=== PATIENT | male | born 1935 | race Caucasian/White ===

== ENCOUNTER 2023-01-01 22:09 | Inpatient (IN) | payer MEDICARE, OTHER ==
[~2023-01-01] VITALS: Ht 152.4 cm; Wt 61.2 kg
[2023-01-01 23:02] LABS: BASOPHILS % (AUTO) 0.8 % (0.0-2.0); DIFFERENTIAL COMMENT 1; EOSINOPHILS # (AUTO) 0.4 K/uL (0.0-0.7); EOSINOPHILS % (AUTO) 7.6 % (0.0-7.0); HEMATOCRIT 37.3 % (36.7-47.1); HEMOGLOBIN 12.7 g/dL (12.5-16.3); LYMPHOCYTES # (AUTO) 1.1 K/uL (0.8-4.8); LYMPHOCYTES % (AUTO) 19.1 % (20.5-51.5); MEAN CORPUSCULAR HEMOGLOBIN 29.2 uug (23.8-33.4); MEAN CORPUSCULAR HGB CONC 34 g/dL (32.5-36.3); MEAN CORPUSCULAR VOLUME 85.5 fL (73.0-96.2); MONOCYTES # (AUTO) 0.2 K/uL (0.1-1.30); MONOCYTES % (AUTO) 4.3 % (0.0-11.0); NEUTROPHILS # (AUTO) 3.9 K/uL (1.8-8.9); NEUTROPHILS % (AUTO) 68.2 % (38.5-71.5); PLATELET COUNT (AUTO) 168 K/uL (152-348); RED BLOOD CELL COUNT(AUTO) 4.36 MIL/uL (4.06-5.63); RED CELL DISTRIBUTION WIDTH 13.6 % (12.1-16.2); WHITE BLOOD COUNT (AUTO) 5.8 K/uL (3.6-10.2)
[2023-01-01] MEDS ORDERED: LOSA25TA27 PO (23:03)
[2023-01-01] MEDS ORDERED: CALC500T52 PO (23:03)
[2023-01-01] MEDS ORDERED: ACET325T53 PO (23:03)
[2023-01-01] MEDS ORDERED: METO-356 PO (23:03)
[2023-01-01] MEDS ORDERED: BUSP5TAB3 PO (23:03)
[2023-01-01] MEDS ORDERED: ASPI81TA31 PO (23:03)
[2023-01-01] MEDS ORDERED: MAGN400O6 PO (23:03)
[2023-01-01] MEDS ORDERED: DUTA0.5C PO (23:03)
[2023-01-01] MEDS ORDERED: TRAZ-182 PO (23:03)
[2023-01-01] MEDS ORDERED: GABA-532 PO ×2 (23:03)
[2023-01-01] MEDS ORDERED: OMEP20TA5 PO (23:03)
[2023-01-01] MEDS ORDERED: MULT-213 PO (23:03)
[2023-01-01] MEDS ORDERED: MELO-105 PO (23:03)
[2023-01-01] MEDS ORDERED: CHOL10005 PO (23:03)
[2023-01-01] MEDS ORDERED: DONE5TAB7 PO (23:03)
[2023-01-01] MEDS ORDERED: TAMS-3 PO (23:03)
[2023-01-01] MEDS ORDERED: DOCU100C36 PO (23:03)
[2023-01-01 23:09] LABS: CALCIUM 9.2 mg/dL (8.5-10.1); CREATININE 1.2 mg/dL (0.6-1.3); POTASSIUM 3.8 mmol/L (3.5-5.1)
[2023-01-01 23:26] LABS: *BILIRUBIN,URIN NEGATIVE (NEGATIVE); *BLOOD, URINE NEGATIVE (NEGATIVE); *CLARITY,URINE CLEAR (CLEAR); *COLOR,URINE YELLOW (YELLOW); *KETONES,URINE TRACE (NEGATIVE); *PROTEIN,URINE NEGATIVE (NEGATIVE); *UROBILINOGEN,URINE 0.2 E.U./dl (NORMAL); LEUKOCYTE ESTERASE ,URINE NEGATIVE (NEGATIVE); NITRITE, URINE NEGATIVE (NEGATIVE); PH,URINE 5.5 (5.0-8.0); UGLUCOSE NEGATIVE (NEGATIVE)
[2023-01-02 00:28] LABS: BACTERIA,URINE FEW /HPF (NONE SEEN); RBC,URINE 0-3 /HPF (0-3); SQUAMOUS EPITHELIAL CELL,UR MODERATE /HPF (NONE SEEN); WBC,URINE NONE SEEN /HPF (0-3)
[2023-01-02] MEDS ORDERED: BLOOD SUGAR DIAGNOSTIC 1 EACH STRIP VI ONE (01:15)
[2023-01-02] MEDS ORDERED: MAG HYDROX/AL HYDROX/SIMETH 30 ML LIQUID UDC PO PRN (01:15)
[2023-01-02] MEDS ORDERED: ACETAMINOPHEN 325 MG TABLET PO PRN (01:15)
[2023-01-02] MEDS ORDERED: MAGNESIUM HYDROXIDE 30 ML LIQUID UDC PO PRN (01:15)
[2023-01-02] MEDS: TEMAZEPAM 7.5 MG CAPSULE PO PRN (02:10)
[2023-01-02 07:30] VITALS: BP 132/45; TEMP 97.7; O2SAT 100
[2023-01-02] MEDS: LORAZEPAM 0.5 MG TABLET PO PRN ×3 (08:47→19:53)
[2023-01-02 13:19] VITALS: BP 132/45; TEMP 97.7; O2SAT 100
[2023-01-02] MEDS ORDERED: OLANZAPINE 5 MG TABLET PO PRN (13:30)
[2023-01-02 14:01] LABS: ALANINE AMINOTRANSFERASE 24 U/L (16-63); ASPARTATE AMINOTRANSFERASE 28 U/L (15-37)
[2023-01-02] MEDS: GABAPENTIN 300 MG CAPSULE PO SCH (16:32)
[2023-01-02] MEDS ORDERED: OLANZAPINE 10 MG VIAL IM ONE (18:15)
[2023-01-02 20:00] VITALS: BP 140/72; TEMP 96; O2SAT 99
[2023-01-02] MEDS: OLANZAPINE 2.5 MG TABLET PO SCH (20:26)
[2023-01-03 08:11] VITALS: BP 180/69; TEMP 98; O2SAT 96
[2023-01-03] MEDS: LORAZEPAM 0.5 MG TABLET PO PRN ×2 (08:32→14:56)
[2023-01-03] MEDS: GABAPENTIN 300 MG CAPSULE PO SCH ×2 (08:32→16:12)
[2023-01-03 16:04] VITALS: BP 116/48; TEMP 98; O2SAT 96
[2023-01-03 20:00] VITALS: BP 90/43; TEMP 98.2; O2SAT 99
[2023-01-03] MEDS: OLANZAPINE 2.5 MG TABLET PO SCH (22:36)
[2023-01-04] MEDS: GABAPENTIN 300 MG CAPSULE PO SCH ×2 (08:34→16:56)
[2023-01-04] MEDS: OLANZAPINE 2.5 MG TABLET PO SCH ×2 (12:05→16:56)
[2023-01-04 16:29] VITALS: BP 121/69; TEMP 98; O2SAT 96
[2023-01-04] MEDS: LORAZEPAM 0.5 MG TABLET PO PRN (18:14)
[2023-01-04 19:49] VITALS: BP 132/70; TEMP 98.1; O2SAT 99
[2023-01-04] MEDS: TEMAZEPAM 7.5 MG CAPSULE PO PRN (21:34)
[2023-01-05 08:08] VITALS: BP 92/57; TEMP 98; O2SAT 97
[2023-01-05] MEDS ORDERED: METOPROLOL SUCCINATE XL 25 MG TAB.SR.24H PO SCH (09:00)
[2023-01-05] MEDS: LOSARTAN POTASSIUM 25 MG TABLET PO SCH (09:00)
[2023-01-05] MEDS: GABAPENTIN 300 MG CAPSULE PO SCH ×2 (09:09→17:48)
[2023-01-05] MEDS: DOCUSATE SODIUM 100 MG CAPSULE PO SCH (09:10)
[2023-01-05] MEDS: OLANZAPINE 2.5 MG TABLET PO SCH ×3 (09:10→17:48)
[2023-01-05] MEDS: CALCIUM CARBONATE 500 MG TABLET PO SCH (09:14)
[2023-01-05] MEDS: DUTASTERIDE 0.5 MG CAPSULE PO SCH (09:14)
[2023-01-05] MEDS: LORAZEPAM 0.5 MG TABLET PO PRN ×2 (11:37→20:21)
[2023-01-05] MEDS: ASPIRIN 81 MG TAB.CHEW PO SCH (11:39)
[2023-01-05 16:11] VITALS: BP 120/67; TEMP 98.1; O2SAT 98
[2023-01-05 19:51] VITALS: BP 118/74; TEMP 98.2; O2SAT 96
[2023-01-05] MEDS: TAMSULOSIN HCL 0.4 MG CAP.SR.24H PO SCH (20:21)
[2023-01-05] MEDS: TEMAZEPAM 7.5 MG CAPSULE PO PRN (21:21)
[2023-01-06 07:30] VITALS: BP 131/77; TEMP 97.6; O2SAT 97
[2023-01-06] MEDS: GABAPENTIN 300 MG CAPSULE PO SCH ×2 (08:35→17:05)
[2023-01-06] MEDS: CALCIUM CARBONATE 500 MG TABLET PO SCH (08:36)
[2023-01-06] MEDS: DOCUSATE SODIUM 100 MG CAPSULE PO SCH (08:36)
[2023-01-06] MEDS: ASPIRIN 81 MG TAB.CHEW PO SCH (08:36)
[2023-01-06] MEDS: LOSARTAN POTASSIUM 25 MG TABLET PO SCH (08:36)
[2023-01-06] MEDS: OLANZAPINE 2.5 MG TABLET PO SCH ×3 (08:36→17:06)
[2023-01-06] MEDS: DUTASTERIDE 0.5 MG CAPSULE PO SCH (08:36)
[2023-01-06 13:00] VITALS: BP 96/50; TEMP 97.8; O2SAT 98
[2023-01-06] MEDS: LORAZEPAM 0.5 MG TABLET PO PRN ×2 (15:22→23:42)
[2023-01-06] MEDS: GLUCERNA SHAKE 237 ML CAN PO SCH (17:06)
[2023-01-06 19:45] VITALS: BP 111/64; TEMP 98; O2SAT 96
[2023-01-06] MEDS: TAMSULOSIN HCL 0.4 MG CAP.SR.24H PO SCH (20:35)
[2023-01-07] MEDS: TEMAZEPAM 7.5 MG CAPSULE PO PRN ×2 (00:50→21:15)
[2023-01-07 08:00] VITALS: BP 109/50; TEMP 97.5; O2SAT 97
[2023-01-07] MEDS: GLUCERNA SHAKE 237 ML CAN PO SCH ×2 (08:00→16:40)
[2023-01-07] MEDS: OLANZAPINE 2.5 MG TABLET PO SCH ×3 (08:33→16:40)
[2023-01-07] MEDS: ASPIRIN 81 MG TAB.CHEW PO SCH (08:33)
[2023-01-07] MEDS: GABAPENTIN 300 MG CAPSULE PO SCH ×2 (08:33→16:40)
[2023-01-07] MEDS: DOCUSATE SODIUM 100 MG CAPSULE PO SCH (08:33)
[2023-01-07] MEDS: LOSARTAN POTASSIUM 25 MG TABLET PO SCH (08:39)
[2023-01-07] MEDS: CALCIUM CARBONATE 500 MG TABLET PO SCH (08:41)
[2023-01-07] MEDS: DUTASTERIDE 0.5 MG CAPSULE PO SCH (08:42)
[2023-01-07 16:00] VITALS: BP 97/63; TEMP 97.7; O2SAT 100
[2023-01-07 20:00] VITALS: BP 106/71; TEMP 98; O2SAT 98
[2023-01-07] MEDS: TAMSULOSIN HCL 0.4 MG CAP.SR.24H PO SCH (20:22)
[2023-01-07] MEDS: LORAZEPAM 0.5 MG TABLET PO PRN (20:22)
[2023-01-08 07:30] VITALS: BP 151/40; TEMP 98; O2SAT 100
[2023-01-08] MEDS: OLANZAPINE 2.5 MG TABLET PO SCH ×3 (09:11→17:11)
[2023-01-08] MEDS: ASPIRIN 81 MG TAB.CHEW PO SCH (09:11)
[2023-01-08] MEDS: DOCUSATE SODIUM 100 MG CAPSULE PO SCH (09:12)
[2023-01-08] MEDS: LOSARTAN POTASSIUM 25 MG TABLET PO SCH (09:12)
[2023-01-08] MEDS: DUTASTERIDE 0.5 MG CAPSULE PO SCH (09:13)
[2023-01-08] MEDS: GLUCERNA SHAKE 237 ML CAN PO SCH ×2 (09:13→17:12)
[2023-01-08] MEDS: GABAPENTIN 300 MG CAPSULE PO SCH ×2 (09:14→17:11)
[2023-01-08] MEDS: CALCIUM CARBONATE 500 MG TABLET PO SCH (09:14)
[2023-01-08] MEDS: LORAZEPAM 0.5 MG TABLET PO PRN ×2 (12:41→18:56)
[2023-01-08 16:00] VITALS: BP 100/48; TEMP 98; O2SAT 99
[2023-01-08 20:00] VITALS: BP 130/68; TEMP 98; O2SAT 97
[2023-01-08] MEDS: TAMSULOSIN HCL 0.4 MG CAP.SR.24H PO SCH (20:43)
[2023-01-08] MEDS: TEMAZEPAM 7.5 MG CAPSULE PO PRN (20:44)
[2023-01-09 07:30] VITALS: BP 108/49; TEMP 97.9; O2SAT 96
[2023-01-09] MEDS: LOSARTAN POTASSIUM 25 MG TABLET PO SCH (09:00)
[2023-01-09] MEDS: ASPIRIN 81 MG TAB.CHEW PO SCH (09:00)
[2023-01-09] MEDS: GABAPENTIN 300 MG CAPSULE PO SCH ×3 (09:00→17:05)
[2023-01-09] MEDS: OLANZAPINE 2.5 MG TABLET PO SCH ×3 (09:01→17:04)
[2023-01-09] MEDS: CALCIUM CARBONATE 500 MG TABLET PO SCH (09:01)
[2023-01-09] MEDS: GLUCERNA SHAKE 237 ML CAN PO SCH ×2 (09:02→17:05)
[2023-01-09] MEDS: DOCUSATE SODIUM 100 MG CAPSULE PO SCH (09:02)
[2023-01-09] MEDS: DUTASTERIDE 0.5 MG CAPSULE PO SCH (09:02)
[2023-01-09 16:30] VITALS: BP 113/68; TEMP 97.9; O2SAT 97
[2023-01-09] MEDS: LORAZEPAM 0.5 MG TABLET PO PRN (18:15)
[2023-01-09 20:00] VITALS: BP 108/48; TEMP 97.9; O2SAT 98
[2023-01-09] MEDS: TAMSULOSIN HCL 0.4 MG CAP.SR.24H PO SCH (20:12)
[2023-01-09] MEDS: OLANZAPINE 5 MG TABLET PO PRN (20:12)
[2023-01-09] MEDS: TEMAZEPAM 7.5 MG CAPSULE PO PRN (21:57)
[2023-01-10] MEDS: LORAZEPAM 0.5 MG TABLET PO PRN ×3 (01:01→20:24)
[2023-01-10] MEDS: LOSARTAN POTASSIUM 25 MG TABLET PO SCH ×2 (09:00→10:15)
[2023-01-10] MEDS: ASPIRIN 81 MG TAB.CHEW PO SCH (09:03)
[2023-01-10] MEDS: GABAPENTIN 300 MG CAPSULE PO SCH ×3 (09:03→16:19)
[2023-01-10] MEDS: OLANZAPINE 2.5 MG TABLET PO SCH ×3 (09:04→16:19)
[2023-01-10] MEDS: CALCIUM CARBONATE 500 MG TABLET PO SCH (09:04)
[2023-01-10] MEDS: DUTASTERIDE 0.5 MG CAPSULE PO SCH (09:05)
[2023-01-10] MEDS: DOCUSATE SODIUM 100 MG CAPSULE PO SCH (09:05)
[2023-01-10] MEDS: GLUCERNA SHAKE 237 ML CAN PO SCH ×2 (09:06→16:19)
[2023-01-10 10:04] VITALS: BP 125/74; TEMP 98.2; O2SAT 97
[2023-01-10 16:31] VITALS: BP 101/59; TEMP 98; O2SAT 97
[2023-01-10 20:00] VITALS: BP 96/58; TEMP 98; O2SAT 97
[2023-01-10] MEDS: TAMSULOSIN HCL 0.4 MG CAP.SR.24H PO SCH (20:24)
[2023-01-10] MEDS: OLANZAPINE 5 MG TABLET PO PRN (23:01)
[2023-01-11] MEDS: GLUCERNA SHAKE 237 ML CAN PO SCH ×3 (08:00→16:25)
[2023-01-11] MEDS: CALCIUM CARBONATE 500 MG TABLET PO SCH (08:53)
[2023-01-11] MEDS: OLANZAPINE 2.5 MG TABLET PO SCH ×3 (08:54→16:25)
[2023-01-11] MEDS: GABAPENTIN 300 MG CAPSULE PO SCH ×3 (08:54→16:25)
[2023-01-11] MEDS: LOSARTAN POTASSIUM 25 MG TABLET PO SCH ×2 (08:54→09:32)
[2023-01-11] MEDS: DUTASTERIDE 0.5 MG CAPSULE PO SCH (08:54)
[2023-01-11] MEDS: ASPIRIN 81 MG TAB.CHEW PO SCH (08:54)
[2023-01-11] MEDS: DOCUSATE SODIUM 100 MG CAPSULE PO SCH (08:54)
[2023-01-11] MEDS: LORAZEPAM 0.5 MG TABLET PO PRN ×2 (11:53→20:41)
[2023-01-11 16:05] VITALS: BP 92/50; TEMP 98; O2SAT 97
[2023-01-11 20:00] VITALS: BP 122/62; TEMP 98; O2SAT 95
[2023-01-11] MEDS: TAMSULOSIN HCL 0.4 MG CAP.SR.24H PO SCH (20:41)
[2023-01-12] MEDS: TEMAZEPAM 7.5 MG CAPSULE PO PRN ×2 (02:14→23:42)
[2023-01-12 07:54] VITALS: BP 139/63; TEMP 98.3; O2SAT 97
[2023-01-12] MEDS: OLANZAPINE 2.5 MG TABLET PO SCH ×4 (08:10→20:39)
[2023-01-12] MEDS: LOSARTAN POTASSIUM 25 MG TABLET PO SCH (08:10)
[2023-01-12] MEDS: DOCUSATE SODIUM 100 MG CAPSULE PO SCH (08:10)
[2023-01-12] MEDS: ASPIRIN 81 MG TAB.CHEW PO SCH (08:10)
[2023-01-12] MEDS: GABAPENTIN 300 MG CAPSULE PO SCH ×3 (08:10→17:36)
[2023-01-12] MEDS: GLUCERNA SHAKE 237 ML CAN PO SCH ×2 (08:11→17:36)
[2023-01-12] MEDS: DUTASTERIDE 0.5 MG CAPSULE PO SCH (08:12)
[2023-01-12] MEDS: CALCIUM CARBONATE 500 MG TABLET PO SCH (08:12)
[2023-01-12] MEDS: LORAZEPAM 0.5 MG TABLET PO PRN (11:59)
[2023-01-12 20:00] VITALS: BP 112/60; TEMP 98.5; O2SAT 100
[2023-01-12] MEDS: TAMSULOSIN HCL 0.4 MG CAP.SR.24H PO SCH (20:39)
[2023-01-13] MEDS: LORAZEPAM 0.5 MG TABLET PO PRN (00:57)
[2023-01-13 07:49] VITALS: BP 126/72; TEMP 98.2; O2SAT 98
[2023-01-13] MEDS: ASPIRIN 81 MG TAB.CHEW PO SCH (08:28)
[2023-01-13] MEDS: OLANZAPINE 2.5 MG TABLET PO SCH ×4 (08:28→20:47)
[2023-01-13] MEDS: CALCIUM CARBONATE 500 MG TABLET PO SCH (08:28)
[2023-01-13] MEDS: DOCUSATE SODIUM 100 MG CAPSULE PO SCH (08:28)
[2023-01-13] MEDS: GABAPENTIN 300 MG CAPSULE PO SCH ×3 (08:28→17:23)
[2023-01-13] MEDS: DUTASTERIDE 0.5 MG CAPSULE PO SCH (08:28)
[2023-01-13] MEDS: LOSARTAN POTASSIUM 25 MG TABLET PO SCH (08:29)
[2023-01-13] MEDS: GLUCERNA SHAKE 237 ML CAN PO SCH ×2 (08:29→17:23)
[2023-01-13 12:18] LABS: ALANINE AMINOTRANSFERASE 20 U/L (16-63); ALBUMIN 3.8 g/dL (3.4-5.0); ALKALINE PHOSPHATASE 82 U/L (50-136); ASPARTATE AMINOTRANSFERASE 22 U/L (15-37); BILIRUBIN,TOTAL 1.2 mg/dL (0.2-1.0); CALCIUM 10.2 mg/dL (8.5-10.1); CARBON DIOXIDE 30 mmol/L (21-32); CHLORIDE 103 mmol/L (98-107); GLUCOSE 81 mg/dL (74-106); POTASSIUM 3.9 mmol/L (3.5-5.1); SODIUM SERUM 140 mmol/L (136-145); TOTAL PROTEIN, SERUM 7.5 g/dL (6.4-8.2); UREA NITROGEN, BLOOD 25 mg/dL (7-18)
[2023-01-13 12:29] LABS: BASOPHILS # (AUTO) 0.1 K/UL (0.0-0.2); BASOPHILS % (AUTO) 0.8 % (0.0-2.0); EOSINOPHILS # (AUTO) 0.6 K/uL (0.0-0.7); EOSINOPHILS % (AUTO) 9.2 % (0.0-7.0); HEMATOCRIT 43.2 % (36.7-47.1); HEMOGLOBIN 14.7 g/dL (12.5-16.3); LYMPHOCYTES # (AUTO) 1.3 K/uL (0.8-4.8); LYMPHOCYTES % (AUTO) 21.6 % (20.5-51.5); MEAN CORPUSCULAR HEMOGLOBIN 29.5 uug (23.8-33.4); MEAN CORPUSCULAR HGB CONC 34 g/dL (32.5-36.3); MEAN CORPUSCULAR VOLUME 86.7 fL (73.0-96.2); MONOCYTES # (AUTO) 0.7 K/uL (0.1-1.30); MONOCYTES % (AUTO) 11.5 % (0.0-11.0); NEUTROPHILS # (AUTO) 3.5 K/uL (1.8-8.9); NEUTROPHILS % (AUTO) 56.9 % (38.5-71.5); PLATELET COUNT (AUTO) 185 K/uL (152-348); RED BLOOD CELL COUNT(AUTO) 4.99 MIL/uL (4.06-5.63); WHITE BLOOD COUNT (AUTO) 6.1 K/uL (3.6-10.2)
[2023-01-13 15:20] VITALS: BP 100/55; TEMP 98.2; O2SAT 99
[2023-01-13 19:55] VITALS: BP 112/60; TEMP 98.2; O2SAT 98
[2023-01-13] MEDS: TAMSULOSIN HCL 0.4 MG CAP.SR.24H PO SCH (20:48)
[2023-01-14 07:49] VITALS: BP 111/62; TEMP 98.4; O2SAT 98
[2023-01-14] MEDS: DOCUSATE SODIUM 100 MG CAPSULE PO SCH (08:27)
[2023-01-14 08:28] VITALS: BP 111/62
[2023-01-14] MEDS: ASPIRIN 81 MG TAB.CHEW PO SCH (08:28)
[2023-01-14] MEDS: CALCIUM CARBONATE 500 MG TABLET PO SCH (08:28)
[2023-01-14] MEDS: GABAPENTIN 300 MG CAPSULE PO SCH (08:28)
[2023-01-14] MEDS: LOSARTAN POTASSIUM 25 MG TABLET PO SCH (08:28)
[2023-01-14] MEDS: DUTASTERIDE 0.5 MG CAPSULE PO SCH (08:28)
[2023-01-14] MEDS: GLUCERNA SHAKE 237 ML CAN PO SCH (08:29)
[2023-01-14] MEDS: OLANZAPINE 2.5 MG TABLET PO SCH (08:30)
== END 2023-01-14 11:15 | DRG 885 ==
LOC: ER 22:16 → GPS 23:30
PROVIDERS: ADMIT Psychiatry & Neurology Psychosomatic Medicine; ATTEND Nurse Practitioner Acute Care
DX: F39 Unspecified mood [affective] disorder (principal); G93.41 Metabolic encephalopathy; F02.84 Dementia in other diseases classified elsewhere, unspecified severity, with anxiety; F02.82 Dementia in other diseases classified elsewhere, unspecified severity, with psychotic disturbance; F02.83 Dementia in other diseases classified elsewhere, unspecified severity, with mood disturbance; F29 Unspecified psychosis not due to a substance or known physiological condition; G30.9 Alzheimer's disease, unspecified; K21.9 Gastro-esophageal reflux disease without esophagitis; J44.9 Chronic obstructive pulmonary disease, unspecified; M19.90 Unspecified osteoarthritis, unspecified site; N40.0 Benign prostatic hyperplasia without lower urinary tract symptoms; F31.89 Other bipolar disorder; F41.9 Anxiety disorder, unspecified; Z66 Do not resuscitate; E78.5 Hyperlipidemia, unspecified; I10 Essential (primary) hypertension
CPT/HCPCS: 36415; 84450; 84460; 85025; J2358